=== PATIENT | female | born 1995 | race Hispanic/Latino ===

== ENCOUNTER → 2024-06-30 | Outpatient (CLI) | payer BC, SELFPAY ==
[2024-06-30 10:23] LABS: Mucous, Urine 0 SEEN /hpf (<or=2+); Red Blood Cells-Urine 0 SEEN /hpf (0-5)
[2024-06-30 11:34] LABS: Absolute Lymphocyte Count 2.54 X10^3/uL (0.83-4.51); Absolute Neutrophil Count 3.9 X10^3/uL (2.0-7.7); Basophil# 0.04 X10^3/uL; Basophil% 0.6 % (0-1); Eosinophils% 2.8 % (0-5); Hematocrit 39.8 % (37-47); Hemoglobin 12.7 g/dL (12.0-15.0); Lymphocyte # 2.54 X10^3/ul (0.83-4.51); Lymphocyte % 35.5 % (19-41); Mean Corp Hgb Conc 31.9 g/dL (32-36); Mean Corpuscular Hgb 27.1 pg (27.0-32.0); Mean Platelet Vol. 12.3 fl (6.2-12.0); Monocyte# 0.47 X10^3/uL; Monocyte% 6.6 % (0-10); NRBC Flagged by Analyzer 0 % (0-5); Neutrophil # 3.88 X10^3/uL (2.7-7.7); Neutrophil % 54.2 % (47-70); Platelet Count 249 K/mm3 (150-450); RBC Distribution Width CV 14.2 % (11.6-14.6); RBC Distribution Width SD 43.8 fl (35.1-43.9); Red Blood Count 4.68 M/mm3 (4.2-5.4); White Blood Count 7.2 K/mm3 (4.4-11.0)
[2024-06-30 11:35] LABS: Color, Urine Yellow (Yellow); Glucose, Dipstick Normal (Normal); Ketone-Dipstick Negative (Negative); Leukocyte Esterase-Dipstick 500 /ul (Negative); Nitrite-Dipstick Negative (Negative); Occult Blood-Urine Negative /ul (Negative); Protein-Dipstick 30 mg/dl (Negative); Urine Bilirubin Dipstick Negative (Negative); Urine Clarity Sl. Cloudy (Clear); Urine Urobilinogen Normal (Normal)
[2024-06-30 11:43] LABS: Bacteria 2+ /hpf (None Seen); Squamous Epithelial Cells - UA 5-10 SEEN /hpf (5-10); White Blood Cells 5-10 SEEN /hpf (0-5)
[2024-06-30 12:04] LABS: Hemoglobin A1c 6.1 % (3.8-5.6)
[2024-06-30 12:22] LABS: ALB/GLOB Ratio 0.9 RATIO (0.9-2.4); AST(SGOT) 35 U/L (15-37); Alanine Aminotransfer ALT/SGPT 69 U/L (13-56); Albumin, Serum 3.8 g/dL (3.2-5.0); Alkaline Phosphatase 99 U/L (45-117); Anion Gap 5 (5-15); BUN 9 mg/dL (7-18); BUN/Creat Ratio 13.5 RATIO (10-20); Chloride 108 mmol/L (98-107); Cholesterol 177 mg/dL (200); Creatinine, Serum 0.66 mg/dL (0.55-1.02); EST Glomerular Filtration Rate 111 mL/min (>60); Est Glom Filt Rate - Afr Amer 134 mL/min (>60); Globulin 4.1 g/dL (2.2-4.2); Glucose 111 mg/dL (74-106); High Density Lipoprotein 55 mg/dL; Potassium 4.2 mmol/L (3.5-5.1); Protein, Total 7.9 g/dL (6.4-8.2); Sodium Level 138 mmol/L (136-145); Triglycerides 87 mg/dL; Very Low Density Lipoprotein 17 mg/dL (5-40)
== END | disposition home or self-care (01) ==
PROVIDERS: PCP Family Medicine; Referring Provider Family Medicine; Visit Provider Family Medicine
DX: Z86.39 Personal history of other endocrine, nutritional and metabolic disease (principal); Z13.220 Encounter for screening for lipoid disorders; Z13.29 Encounter for screening for other suspected endocrine disorder
CPT/HCPCS: 36415; 80053; 80061; 81001; 83036; 84443; 85025

== ENCOUNTER 2024-07-12 04:56 | Emergency (ER) | payer BC, SELFPAY ==
[2024-07-12 04:57] VITALS: BP 138/88; PULSE 70; RESP 18; TEMP 37.1; O2SAT 97; BMI 41.4
[2024-07-12 05:30] LABS: Mucous, Urine 0 SEEN /hpf (<or=2+)
[2024-07-12 05:34] LABS: Absolute Lymphocyte Count 1.78 X10^3/uL (0.83-4.51); Absolute Neutrophil Count 6.5 X10^3/uL (2.0-7.7); Basophil# 0.04 X10^3/uL; Basophil% 0.4 % (0-1); Eosinophil# 0.23 X10^3/uL; Eosinophils% 2.5 % (0-5); Hematocrit 40.1 % (37-47); Hemoglobin 13.2 g/dL (12.0-15.0); Lymphocyte # 1.78 X10^3/ul (0.83-4.51); Lymphocyte % 19.5 % (19-41); Mean Corp Hgb Conc 32.9 g/dL (32-36); Mean Corpuscular Hgb 27.2 pg (27.0-32.0); Mean Corpuscular Volume 82.7 fL (81-99); Mean Platelet Vol. 11.7 fl (6.2-12.0); Monocyte# 0.53 X10^3/uL; Monocyte% 5.8 % (0-10); NRBC Flagged by Analyzer 0 % (0-5); Neutrophil # 6.54 X10^3/uL (2.7-7.7); Neutrophil % 71.6 % (47-70); Platelet Count 260 K/mm3 (150-450); RBC Distribution Width CV 13.7 % (11.6-14.6); RBC Distribution Width SD 41.1 fl (35.1-43.9); Red Blood Count 4.85 M/mm3 (4.2-5.4); White Blood Count 9.1 K/mm3 (4.4-11.0)
[2024-07-12 05:38] LABS: Glucose, Dipstick Normal (Normal); Ketone-Dipstick Negative (Negative); Leukocyte Esterase-Dipstick 100 /ul (Negative); Nitrite-Dipstick Negative (Negative); Occult Blood-Urine 250 /ul (Negative); Protein-Dipstick 15 mg/dl (Negative); Urine Bilirubin Dipstick Negative (Negative); Urine Urobilinogen Normal (Normal)
[2024-07-12 05:46] LABS: Bacteria 2+ /hpf (None Seen); Color, Urine Yellow (Yellow); Internal QC Validated? YES +Cl - CLEAR BKGD; Pregnancy, Urine Negative Negative; Red Blood Cells-Urine 0-5 SEEN /hpf (0-5); Squamous Epithelial Cells - UA 0-5 SEEN /hpf (5-10); Urine Clarity Sl Cldy (Clear); White Blood Cells 5-10 SEEN /hpf (0-5)
[2024-07-12 05:56] VITALS: BP 133/95; PULSE 73; RESP 18; O2SAT 97
[2024-07-12 05:59] LABS: Anion Gap 8 (5-15); BUN 8 mg/dL (7-18); BUN/Creat Ratio 10.1 RATIO (10-20); Calcium,Total 8.9 mg/dL (8.5-10.1); Chloride 108 mmol/L (98-107); Creatinine, Serum 0.79 mg/dL (0.55-1.02); EST Glomerular Filtration Rate 91 mL/min (>60); Est Glom Filt Rate - Afr Amer 110 mL/min (>60); Estimated Creatinine Clearance 126.01 ml/min; Glucose 126 mg/dL (74-106); Potassium 3.9 mmol/L (3.5-5.1); Sodium Level 138 mmol/L (136-145)
[2024-07-12 06:03] LABS: Amphetamine Urine VISTA NEGATIVE (<1000 ng/mL); Barbiturate Urine VISTA NEGATIVE (< 200 ng/mL); Benzodiazepine Urine VISTA NEGATIVE (< 200 ng/mL); Cocaine Urine VISTA NEGATIVE (< 300 ng/mL); Ecstacy Urine VISTA NEGATIVE (< 500 ng/mL); Methadone Urine VISTA NEGATIVE (< 300 ng/mL); PCP Urine VISTA NEGATIVE (< 25 ng/mL); THC Urine VISTA NEGATIVE (< 50 ng/mL); Vista UDS pH Range 5
[2024-07-12 06:38] LABS: Acetaminophen (Tylenol) Level < 2.0 ug/mL (10.0-30.0); Salicylate < 1.7 mg/dL (2.8-20.0)
[2024-07-12 14:04] VITALS: PULSE 83; RESP 18; O2SAT 98
[2024-07-12] MEDS: Cephalexin 250 MG Capsule 500 MG PO (15:30)
[2024-07-12 20:25] VITALS: BP 132/89; PULSE 71; RESP 18; TEMP 36.5; O2SAT 97
== END 2024-07-12 21:24 ==
PROVIDERS: Emergency Provider Emergency Medicine; PCP Family Medicine; Visit Provider Emergency Medicine
DX: T43.222A Poisoning by selective serotonin reuptake inhibitors, intentional self-harm, initial encounter (principal); F32.A Depression, unspecified; Z79.899 Other long term (current) drug therapy
CPT/HCPCS: 80048; 80143; 80179; 80307; 81001; 81025; 82077; 85025; 93005; 99284

== ENCOUNTER 2024-10-20 13:06 | Outpatient (CLI) | payer BC, SELFPAY ==
--- NOTE | 2024-10-20 13:22 | RAD_ITS ---
EXAM: XR Chest, 2 Views CLINICAL INDICATION: TECHNIQUE: Frontal and lateral views of the chest. COMPARISON: No relevant prior studies available. FINDINGS: LUNGS AND PLEURAL SPACES: Unremarkable. No consolidation. No pneumothorax. HEART: Unremarkable. No cardiomegaly. MEDIASTINUM: Unremarkable. Normal mediastinal contour. BONES/JOINTS: Unremarkable. No acute fracture. RAD/Chest PA and Lateral IMPRESSION: No acute cardiopulmonary process. Reading [facility]
== END 2024-10-20 23:59 | disposition home or self-care (01) ==
LOC: RAD 13:11
PROVIDERS: PCP Family Medicine
DX: Z11.1 Encounter for screening for respiratory tuberculosis (principal)
CPT/HCPCS: 71046

== ENCOUNTER 2024-11-21 16:57 | Emergency (ER) | payer BC, SELFPAY ==
[2024-11-21 16:58] VITALS: BP 118/86; PULSE 94; RESP 18; TEMP 37.2; O2SAT 99; BMI 38.6
[2024-11-21] MEDS: MethylPREDNISolone 125 MG/2 ML Vial IV (17:23)
[2024-11-21] MEDS: DiphenhydrAMINE 50 MG/ML Syringe IV (17:23)
[2024-11-21] MEDS: Famotidine 200 MG/20 ML MDV 20 MG in 0.9% Normal Saline (Pres. free 8 ML 300 MG IV (17:27)
--- NOTE | 2024-11-21 17:30 | EX.ED.DYSGE1 ---
HPI History of Present Illness Chief Complaint: Allergic Reaction Informant: patient Narrative Narrative: 29-year-old female presenting to the emergency room with acute allergic reaction. Patient states that she was eating some fried bananas that she had fried in all of oil and some peanuts. Significant other states that he ate one of the bananas last night and had a scratchy throat. She states that about 45 minutes ago just after ingestion she began to have facial and chest itching followed by hives. She has had this condition before with no reactions. PFSH PFSH Medical History no medical history Home Medications ?Medication ?Instructions ?Recorded ?Last Taken ?Type citalopram 20 mg tablet mg PO 07/12/24 Unknown History Allergy/AdvReac Type Severity Reaction Status Date / Time No Known Allergies Allergy Verified 07/12/24 04:57 Family History no significant family his Surgical History no surgical history Social History Smoking Status: Never smoker ROS ROS ED Constitutional Constitutional ED: Denies chills or weight loss Eyes Eyes: Denies change in vision or diplopia ENT ENT ED: Denies ear pain, rhinorrhea or sore throat Cardiovascular Cardiovascular: Denies chest pain, orthopnea, palpitations or racing heartbeat Respiratory/Chest Respiratory/Chest: Denies cough, dyspnea or orthopnea Gastrointestinal Gastrointestinal: Denies abdominal pain, diarrhea, nausea or vomiting Genitourinary Genitourinary ED: Denies dysuria, hematuria or urinary frequency Musculoskeletal Musculoskeletal: Denies arthralgias or myalgias Integumentary Reports rash and other Details: Pruritus ; Denies abscess Neurologic Neurologic: Denies headache(s) or weakness Psychiatric Psychiatric: Denies anxiety, depression, suicidal ideation or suicidal thoughts Endocrine Endocrinology: Denies polydipsia, polyphagia or polyuria Allergic/Immunologic Allergic/Immunologic ED: Denies mouth swelling, tongue swelling or urticaria EXAM Physical Exam Const Vital Signs: 11/21/24 16:58 11/21/24 17:57 11/21/24 18:00 Temperature 98.9 F Temperature Source Oral Pulse Rate 94 91 90 Respiratory Rate 18 15 15 Blood Pressure 118/86 H 119/84 H 119/84 H Blood Pressure Mean 96 95 95 Pulse Ox 99 95 95 Oxygen Delivery Method Room Air Room Air Room Air 11/21/24 19:00 Temperature Temperature Source Pulse Rate 77 Respiratory Rate 16 Blood Pressure 114/87 H Blood Pressure Mean 96 Pulse Ox 96 Oxygen Delivery Method Room Air Positive well nourished and well developed General Appearance ED: well developed HEENT Reports normocephalic, head/scalp atraumatic and moist mucous membranes HEENT Narrative: Patient has hives on her face neck scalp. Bilateral ears are erythematous. I do not appreciate any tongue swelling no uvula swelling no lip swelling. Eyes PERRL and EOMs intact bilaterally Neck no lymphadenopathy, supple and no JVD Resp normal respiratory effort and clear to auscultation bilaterally Resp Narrative: No wheezing Cardio regular rate, regular rhythm and no murmurs GI normal to inspection, nondistended, normoactive bowel sounds and non-tender Palpation: soft Back/Spine no CVA tenderness and normal ROM Extremity normal to inspection General Extremety ED: Negative for edema General Extremity: Negative for edema Neuro oriented x3 and CN's II-XII intact bilaterally Sensorium / Orientation: alert Motor Exam: strength 5/5 throughout Psych mental status grossly normal Mood & Affect: Negative for depressed or tearful Skin no wounds Skin Narrative: Positive hives upper chest bilateral arms MDM MDM MDM Narrative Medical decision making narrative: Differential diagnosis includes but not limited to angioedema and anaphylaxis hives Food allergy Patient received Benadryl Pepcid and Solu-Medrol. She was observed for 2 hours. Symptoms have fully abated no more hives or itching. She has no respiratory symptoms. At this point I think the patient can be discharged home. We talked about possibly following up with an software test technician if she chooses. We talked about taking additional Benadryl. History & Record Review Discussion w/independent historian: Patient and Significant other Discharge Plan Triage Chief Complaint: Allergic Reaction ED Provider: Jonas Elkins Dx/Rx/DC Orders Clinical Impression: Acute allergic reaction, Hives Instructions: ED General Allergic Reactions Prescriptions: No Action citalopram 20 mg tablet PO Primary Care Provider: Hmoe Acosta Referrals: Home Acosta DO [Primary Care Provider] - As Needed Activity Restrictions/Additional Instructions: I would take another Benadryl at bedtime tonight. If you still have some symptoms tomorrow continue Benadryl. Be cautious going forward as if you read react again it may be worse. Print Language: Kazakh Disposition Disposition: Home, Self Care
[2024-11-21 17:57] VITALS: BP 119/84; PULSE 91; RESP 15; O2SAT 95
[2024-11-21 18:00] VITALS: BP 119/84; PULSE 90; RESP 15; O2SAT 95
[2024-11-21 19:00] VITALS: BP 114/87; PULSE 77; RESP 16; O2SAT 96
[2024-11-21 19:28] VITALS: BP 114/74; PULSE 85; RESP 18; TEMP 36.8; O2SAT 96
== END 2024-11-21 19:31 | disposition home or self-care (01) ==
PROVIDERS: Emergency Provider Emergency Medicine; PCP Family Medicine; Visit Provider Emergency Medicine
DX: T78.1XXA Other adverse food reactions, not elsewhere classified, initial encounter (principal); L50.0 Allergic urticaria
CPT/HCPCS: 96365; 96375; 99284; A4216

== ENCOUNTER 2024-12-11 14:18 | Emergency (ER) | payer BC, SELFPAY ==
[2024-12-11 14:19] VITALS: BP 123/71; PULSE 85; RESP 18; TEMP 36.4; O2SAT 95; BMI 30.9
[2024-12-11 14:26] VITALS: BMI 39.9
[2024-12-11] MEDS: Epi Pen (EQUIV) 0.3 MG Syringe IM (14:30)
[2024-12-11] MEDS: MethylPREDNISolone 125 MG/2 ML Vial IV (14:34)
[2024-12-11] MEDS: Famotidine 200 MG/20 ML MDV 20 MG in 0.9% Normal Saline (Pres. free 8 ML 300 MG IV (14:34)
[2024-12-11] MEDS: 0.9% Normal Saline (1000mL) 1,000 ML 999 ML IV (14:36)
--- NOTE | 2024-12-11 14:42 | EX.ED.DYSGE1 ---
HPI <LENNY Churchill - Last Filed: 12/11/24 16:16> History of Present Illness Chief Complaint: Allergic Reaction Narrative Narrative: 29-year-old female presents with an acute allergic reaction. She thinks maybe she was exposed to peanuts because she has had an allergy to this in the past. She states last night she had chocolate and this morning had Doritos. About an hour prior to arrival she developed itching and a feeling of scratchy throat with swallowing. She does not have an EpiPen. She denies chest pain or shortness of breath or vomiting. PFSH <LENNY Churchill - Last Filed: 12/11/24 16:16> [facility] Medical History (Updated 12/11/24 @ 16:13 by LENNY Churchill) Depression Medical History no medical history Home Medications ?Medication ?Instructions ?Recorded ?Last Taken ?Type citalopram 20 mg tablet mg PO 07/12/24 Unknown History epinephrine 0.3 mg/0.3 mL 0.3 mg (0.3 mL) IM Q10M PRN PRN 12/11/24 Unknown Rx injection, auto-injector (EpiPen) anaphylaxis #2 ea prednisone 50 mg tablet 50 mg PO DAILY 4 days #4 tabs 12/11/24 Unknown Rx Allergy/AdvReac Type Severity Reaction Status Date / Time nut - unspecified (nuts) Allergy Anaphylaxis Verified 12/11/24 14:21 Family History no significant family his Social History Smoking Status: Never smoker ROS <LENNY Churchill - Last Filed: 12/11/24 16:16> ROS ED ROS Narrative Constitutional: Negative for fever, chills, malaise. CVS: Negative for chest pain. Respiratory: Negative for shortness of breath. GI: Negative for abdominal pain, nausea, vomiting. EXAM <LENNY Churchill - Last Filed: 12/11/24 16:16> Physical Exam Narrative Exam Narrative: CONST: Patient sitting in no acute distress. EYES: Normal inspection. ENT: Normal inspection, no angioedema, no drooling or stridor. NECK: Normal inspection. RESP: No respiratory distress, CTAB. CVS: Regular rate and rhythm, no murmur, no gallop. ABD: Soft and nontender, no guarding or rebound, nondistended. SKIN: Erythema the skin around the neck and upper chest. EXTREMITIES: Normal appearance, no pedal edema. NEURO: Alert and answering questions appropriately. PSYCH: Normal affect. Const Vital Signs: 12/11/24 16:00 12/11/24 16:28 Pulse Rate 90 Respiratory Rate 18 16 Blood Pressure 114/78 120/74 Blood Pressure Mean 89 89 Pulse Ox 98 96 <Dr. Lily Hernandez, - Last Filed: 12/12/24 15:23> Physical Exam Const Vital Signs: 12/11/24 16:00 12/11/24 16:28 Pulse Rate 90 Respiratory Rate 18 16 Blood Pressure 114/78 120/74 Blood Pressure Mean 89 89 Pulse Ox 98 96 [facility] <LENNY Churchill - Last Filed: 12/11/24 16:16> [facility] Narrative Medical decision making narrative: History gathered from: Patient and significant other Differential includes but not limited to anaphylaxis, food allergen, allergic reaction Patient had an allergic reaction prior to arrival with the rash and itching as well as subjective feeling of throat swelling. She appears well and nontoxic. Vital signs stable. She has a rash on the upper neck and chest. Normal heart and lung sounds. Abdomen is soft and nontender. No angioedema. She was given IM epinephrine in the left lateral thigh and IV Solu-Medrol, Pepcid and fluids. She took Benadryl just prior to arrival. It is not clear what triggered this reaction because she had chocolate with peanuts around midnight and did not develop symptoms until this afternoon. She was monitored for 2+ hours without rebound symptoms. I prescribed prednisone burst and EpiPen to have on hand if needed. She has a follow-up appointment already scheduled with her primary care doctor tomorrow and should discuss her allergic reaction as she may need further allergy testing. She was discharged in stable condition. <Dr. Lily Hernandez DO - Last Filed: 12/12/24 15:23> [facility] Narrative Medical decision making narrative: History gathered from: Patient and significant other Differential includes but not limited to anaphylaxis, food allergen, allergic reaction Patient had an allergic reaction prior to arrival with the rash and itching as well as subjective feeling of throat swelling. She appears well and nontoxic. Vital signs stable. She has a rash on the upper neck and chest. Normal heart and lung sounds. Abdomen is soft and nontender. No angioedema. She was given IM epinephrine in the left lateral thigh and IV Solu-Medrol, Pepcid and fluids. She took Benadryl just prior to arrival. It is not clear what triggered this reaction because she had chocolate with peanuts around midnight and did not develop symptoms until this afternoon. She was monitored for 2+ hours without rebound symptoms. I prescribed prednisone burst and EpiPen to have on hand if needed. She has a follow-up appointment already scheduled with her primary care doctor tomorrow and should discuss her allergic reaction as she may need further allergy testing. She was discharged in stable condition. I have personally performed a face to face assessment of the patient and have reviewed the [place] Note. I performed a substantive portion of the visit including all aspects of the following. My cancino findings include: Patient presents to the emergency room for concern of allergic reaction. Patient developed rash, itching, cough and feeling of throat swelling. She took 50 mg of Benadryl prior to arrival. She states that she was eating Doritos today and had chocolate peanut butter at last night around midnight. She suspects that is what is causing her reaction. Patient has scattered urticaria and a dry cough however do not appreciate any wheezing, oropharyngeal swelling, stridor she has not any GI symptoms. Given her reported feeling of throat swelling she is given IM epinephrine as well as IV Solu-Medrol and Pepcid. She is monitored for over 2 hours. She clinically improved with numbers but also mild urticaria on her arms. Counseled that she might have a waxing and waning course. Discussed that I am not entirely sure that this is a peanut allergy given that her exposure was over 12 hours prior to presentation but we do recommend she follow-up with primary care doctor and carry an EpiPen. Counseled to maintain take Benadryl as needed for symptoms. Differential also includes viral syndrome, cold urticaria or other allergic reaction. Patient verbalized agreement and understanding of this plan. Discharged home symptoms. Discharge Plan Triage Chief Complaint: Allergic Reaction ED Midlevel Provider: [place] ED Provider: Lily Hernandez Dx/Rx/DC Orders Clinical Impression: Allergic reaction Instructions: Allergy Overview Prescriptions: New epinephrine [EpiPen] 0.3 mg/0.3 mL auto-injector 0.3 mg IM Q10M PRN PRN (Reason: anaphylaxis) Qty: 2 0RF Rx Instructions: for 2 doses prednisone 50 mg tablet 50 mg PO DAILY 4 Days Qty: 4 0RF No Action citalopram 20 mg tablet PO Primary Care Provider: Home Acosta Referrals: Hmoe Acosta DO [Primary Care Provider] - Activity Restrictions/Additional Instructions: You had a severe allergic reaction. Take Benadryl every 6 hours as needed for itching or rash. 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 If you have any lip or tongue swelling or difficulty swallowing or breathing use the EpiPen and then come to the emergency room. Follow-up with your primary care doctor as you may need allergy testing or other treatments. Print Language: Croatian Disposition Disposition: Home, Self Care Discharge Date/Time: 12/11/24 16:36
[2024-12-11 15:20] VITALS: BP 109/66; PULSE 94; RESP 23; O2SAT 96
[2024-12-11 16:00] VITALS: BP 114/78; RESP 18; O2SAT 98
[2024-12-11 16:28] VITALS: BP 120/74; PULSE 90; RESP 16; O2SAT 96
== END 2024-12-11 16:36 | disposition home or self-care (01) ==
PROVIDERS: Emergency Provider Emergency Medicine; PCP Family Medicine; Visit Provider Emergency Medicine
DX: T78.40XA Allergy, unspecified, initial encounter (principal)
CPT/HCPCS: 96361; 96374; 96375; 99282; A4216